=== PATIENT | male | born 1960 | race American Indian/Alaskan Native ===

== ENCOUNTER 2018-10-20 00:17 | Emergency (ER) | payer MEDICAID, OTHER ==
[2018-10-20 00:31] VITALS: BP 176/140
--- NOTE | 2018-10-20 01:14 | XRay Report ---
CHEST 1 VIEW INDICATION: Chest Pain. COMPARISON: None. FINDINGS: Support devices: None. Heart: Normal. Lungs/Pleura: No acute pulmonary or pleural findings. IMPRESSION: 1. No acute findings. Signer Name: Nitish Weathers MD Signed: 10/20/2018 1:09 AM Workstation Name: [id number]
== END 2018-10-20 01:00 | disposition left against medical advice (07) ==
LOC: ED 00:17
DX: R07.89 Other chest pain (principal); Z53.21 Procedure and treatment not carried out due to patient leaving prior to being seen by health care provider
CPT/HCPCS: 71045; 93005; 93010